=== PATIENT | female | born 1970 | race African-American/Black ===

== ENCOUNTER 2018-08-19 19:50 | Emergency (ER) | payer BC ==
[2018-08-19] MEDS ORDERED: PANTOPRAZOLE 40 MG INJ ONE (20:40)
--- NOTE | 2018-08-19 20:41 | RAD REPORT ---
EXAM DESCRIPTION: Ramesh Single View08/19/2018 8:32 pm CLINICAL HISTORY: Chest pain COMPARISON: none FINDINGS: The lungs appear clear of acute infiltrate. The heart is normal size IMPRESSION: No acute abnormalities displayed
[2018-08-19 20:49] LABS: Absolute Lymphocytes (CBC) 4.3 K/uL (0.7-4.9); Absolute Monocytes 0.5 K/uL (0.1-1.3); Absolute Neutrophil 4.8 K/uL (1.8-8.0); Basophils % 0.7 % (0-1.3); Eosinophils % 0.9 % (0-4.4); Hematocrit 38.3 % (36.0-45.0); MPV 8.7 fL (7.6-11.3); Monocytes % 5.6 % (3.3-12.3); RBC Red Blood Cell Count 4.52 M/uL (3.86-4.86)
[2018-08-19 20:50] LABS: Protime INR 1.01
[2018-08-19] MEDS ORDERED: MAGNE/ALUM HYDROXD 30 ML UCUP ONE (21:15)
[2018-08-19] MEDS ORDERED: LIDOCAINE VISCOUS 2% SOLN 15 ML UDC ONE (21:15)
[2018-08-19 21:16] LABS: ALT/SGPT 17 U/L (12-78); AST/SGOT 9 U/L (15-37); Albumin 3.9 g/dL (3.4-5.0); Alkaline Phosphatase 93 U/L (45-117); BUN Blood Urea Nitrogen 12 mg/dL (7-18); Bicarbonate 27 mmol/L (21-32); Bilirubin Direct < 0.1 mg/dL (0-0.2); Bilirubin Total 0.1 mg/dL (0.2-1.0); Glucose Level 108 mg/dL (74-106); Magnesium 2.3 mg/dL (1.8-2.4); NT PRO-BNP 10 pg/mL (<125); Potassium 3.4 mmol/L (3.5-5.1); Protein, Total 8.1 g/dL (6.4-8.2); Sodium Level 139 mmol/L (136-145); Troponin (Emerg Dept Use Only) < 0.02 ng/mL (0.0-0.045)
[2018-08-19 21:51] LABS: Urine Blood NEGATIVE (NEG); Urine Glucose NEGATIVE (NEG); Urine Protein NEGATIVE (NEG); Urine pH 5.5 (5.0-7.0)
--- NOTE | 2018-08-19 23:43 | EDPHYS ---
Physician Documentation [facility] Name: Ruth Melgar Age: 48 yrs Sex: Female : 1970 Arrival Date: 08/19/2018 Time: 19:50 Bed 26 Private MD: ED Physician Dale King HPI: 08/19 20:46 This 48 yrs old Black Female presents to ER via Ambulatory with complaints of Chest jr8 Pain. 20:46 Onset: acutely, today. The pain does not radiate. Associated signs and symptoms: jr8 Pertinent positives: abdominal pain. The chest pain is described as burning. Duration: The patient or guardian reports a single episode, that is still ongoing. Modifying factors: The symptoms are alleviated by nothing. the symptoms are aggravated by nothing. Severity of pain: At its worst the pain was moderate in the emergency department the pain is unchanged. The patient has not experienced similar symptoms in the past. The patient has not recently seen a physician. Patient stated that she has been having a hard time with epigastric pain and burning for the past couple of weeks. Saw PCP and is being worked up and referred. Now having burning chest pain tonight . 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 - Social history:: Smoking status: Patient/guardian denies using tobacco. - Ebola Screening: : No symptoms or risks identified at this time. ROS: 20:46 Eyes: Negative for injury, pain, redness, and discharge, ENT: Negative for injury, jr8 pain, and discharge, Neck: Negative for injury, pain, and swelling, Respiratory: Negative for shortness of breath, cough, wheezing, and pleuritic chest pain, Back: Negative for injury and pain, MS/Extremity: Negative for injury and deformity, Skin: Negative for injury, rash, and discoloration, Neuro: Negative for headache, weakness, numbness, tingling, and seizure. 20:46 Cardiovascular: Positive for chest pain, Negative for edema, orthopnea, palpitations, paroxysmal nocturnal dyspnea. 20:46 Abdomen/GI: Positive for abdominal pain, Negative for nausea, vomiting, and diarrhea, abdominal distension, anorexia, dysphagia, hematemesis, black/tarry stool, rectal pain, rectal bleeding, bowel incontinence, flatulence. Exam: 20:46 Eyes: Pupils equal round and reactive to light, extra-ocular motions intact. Lids and jr8 lashes normal. Conjunctiva and sclera are non-icteric and not injected. Cornea within normal limits. Periorbital areas with no swelling, redness, or edema. ENT: Nares patent. No nasal discharge, no septal abnormalities noted. Tympanic membranes are normal and external auditory canals are clear. Oropharynx with no redness, swelling, or masses, exudates, or evidence of obstruction, uvula midline. Mucous membranes moist. Neck: Trachea midline, no thyromegaly or masses palpated, and no cervical lymphadenopathy. Supple, full range of motion without nuchal rigidity, or vertebral point tenderness. No Meningismus. Cardiovascular: Regular rate and rhythm with a normal S1 and S2. No gallops, murmurs, or rubs. Normal PMI, no JVD. No pulse deficits. Respiratory: Lungs have equal breath sounds bilaterally, clear to auscultation and percussion. No rales, rhonchi or wheezes noted. No increased work of breathing, no retractions or nasal flaring. Back: No spinal tenderness. No costovertebral tenderness. Full range of motion. Skin: Warm, dry with normal turgor. Normal color with no rashes, no lesions, and no evidence of cellulitis. MS/ Extremity: Pulses equal, no cyanosis. Neurovascular intact. Full, normal range of motion. Neuro: Awake and alert, GCS 15, oriented to person, place, time, and situation. Cranial nerves II-XII grossly intact. Motor strength 5/5 in all extremities. Sensory grossly intact. Cerebellar exam normal. Normal gait. 20:46 Abdomen/GI: Inspection: abdomen appears normal, Bowel sounds: active, all quadrants, Palpation: soft, in all quadrants, mild abdominal tenderness, in the epigastric area, mass, is not appreciated, rebound tenderness, is not appreciated, voluntary guarding, is not appreciated, involuntary guarding, is not appreciated, no appreciated organomegaly, Indicators: McBurney's point is not tender, Armando's sign is negative, Rovsing's sign is negative, Liver: tenderness, is not appreciated. Vital Signs: 20:00 Pulse 65; Resp 16; Temp 99.2; Pulse Ox 100% on R/A; Weight 74.84 kg; Height 5 ft. 4 in. la1 (162.56 cm); 20:01 BP 150 / 87; la1 22:03 BP 148 / 77; Pulse 60; Resp 18; Pulse Ox 98% on R/A; mg2 23:54 BP 135 / 78; Pulse 65; Resp 18; Pulse Ox 100% on R/A; Pain 0/10; mg2 20:00 Body Mass Index 28.32 (74.84 kg, 162.56 cm) la1 MDM: 20:06 Patient medically screened. jr8 23:42 Data reviewed: vital signs, nurses notes, lab test result(s), EKG, radiologic studies, jr8 plain films, and as a result, I will discharge patient. Data interpreted: Pulse oximetry: on room air is 98 %. Interpretation: normal. Counseling: I had a detailed discussion with the patient and/or guardian regarding: the historical points, exam findings, and any diagnostic results supporting the discharge/admit diagnosis, lab results, radiology results, the need for outpatient follow up, a director hematology, to return to the emergency department if symptoms worsen or persist or if there are any questions or concerns that arise at home. Response to treatment: the patient's symptoms have resolved after treatment. 08/19 20:06 Order name: Basic Metabolic Panel; Complete Time: 21:36 08/19 20:06 Order name: CBC with Diff; Complete Time: 21:04 08/19 20:06 Order name: LFT's; Complete Time: 21:36 08/19 20:06 Order name: Magnesium; Complete Time: 21:36 08/19 20:06 Order name: NT PRO-BNP; Complete Time: 21:36 08/19 20:06 Order name: PT-INR; Complete Time: 21:07 08/19 20:06 Order name: Troponin (emerg Dept Use Only); Complete Time: 21:36 08/19 20:06 Order name: XRAY Chest (1 view); Complete Time: 20:50 08/19 20:06 Order name: EKG; Complete Time: 20:08 08/19 20:06 Order name: Cardiac monitoring; Complete Time: 20:25 08/19 21:43 Order name: Urine Dipstick--Ancillary (enter results); Complete Time: 21:53 mw2 08/19 21:43 Order name: Urine --Ancillary (enter results); Complete Time: 21:53 mw2 08/19 20:06 Order name: EKG - Nurse/Tech; Complete Time: 20:24 08/19 20:06 Order name: IV Saline Lock; Complete Time: 20:38 08/19 20:06 Order name: Labs collected and sent; Complete Time: 20:38 08/19 20:06 Order name: O2 Per Protocol; Complete Time: 20:25 08/19 20:06 Order name: O2 Sat Monitoring; Complete Time: 20:25 Administered Medications: 20:56 Drug: ProTONIX 40 mg Route: IVP; Site: right antecubital; mg2 22:32 Follow up: Response: No adverse reaction; Marked relief of symptoms mg2 21:16 Not Given (patient cant tolerate the medication): GI Cocktail without - mg2 (Maalox Suspension 30 ml, Lidocaine Liquid 2 % 15 ml) PO once Disposition: 08/20 02:43 Co-signature as Attending Physician, Dale King MD. pk Disposition: 08/19/18 23:42 Discharged to Home. Impression: Gastritis, unspecified, without bleeding, Esophagitis. - Condition is Stable. - Discharge Instructions: Gastritis, Adult. - Prescriptions for Protonix 40 mg Oral Tablet - take 1 tablet by ORAL route once daily; 30 tablet. - Medication Reconciliation Form, Thank You Letter, Antibiotic Education, Prescription Opioid Use form. - Follow up: Vik Cruz MD; When: 2 - 3 days; Reason: Recheck today's complaints, Continuance of care, Re-evaluation by your physician. - Problem is new. - Symptoms have improved. Signatures: Dispatcher [employer] EDMS Dale King MD MD pkl Андрей Haywood PA PA jr8 Donald Evans RN RN la1 Bakari Hidalgo RN RN mg2 Corrections: (The following items were deleted from the chart) 08/19 23:54 23:42 08/19/2018 23:42 Discharged to Home. Impression: Gastritis, unspecified, without mg2 bleeding; Esophagitis. Condition is Stable. Forms are Medication Reconciliation Form, Thank You Letter, Antibiotic Education, Prescription Opioid Use. Follow up: Vik Cruz; When: 2 - 3 days; Reason: Recheck today's complaints, Continuance of care, Re-evaluation by your physician. Problem is new. Symptoms have improved. jr8
--- NOTE | 2018-08-19 23:43 | ER ---
Nurse's Notes [facility] Name: Ruth Melgar Age: 48 yrs Sex: Female : 1970 Arrival Date: 08/19/2018 Time: 19:50 Bed 26 Private MD: Diagnosis: Gastritis, unspecified, without bleeding;Esophagitis Presentation: 08/19 19:57 Presenting complaint: Patient states: My chest is burning and burning for the last la1 hour, and for the last month I have to wake up in the middle of my night because my food is not digesting good. Transition of care: patient was not received from another setting of care. Onset of symptoms was August 19, 2018. Risk Assessment: Do you want to hurt yourself or someone else? Patient reports no desire to harm self or others. Initial Sepsis Screen: Does the patient meet any 2 criteria? No. Patient's initial sepsis screen is negative. Does the patient have a suspected source of infection? No. Patient's initial sepsis screen is negative. Care prior to arrival: None. 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 - Social history:: Smoking status: Patient/guardian denies using tobacco. - Ebola Screening: : No symptoms or risks identified at this time. Screenin:58 Abuse screen: Denies threats or abuse. Denies injuries from another. Nutritional mg2 screening: No deficits noted. Tuberculosis screening: No symptoms or risk factors identified. Fall Risk IV access (20 points). Assessment: 20:57 General: Appears in no apparent distress. comfortable, Behavior is calm, cooperative. mg2 Pain: Complains of pain in epigastric area Pain does not radiate. Pain currently is 6 out of 10 on a pain scale. Quality of pain is described as burning, aching, Pain began gradually, 1 hour ago. Is intermittent. Neuro: Level of Consciousness is awake, alert, obeys commands, Oriented to person, place, time, situation. Cardiovascular: Capillary refill < 3 seconds Patient's skin is warm and dry. Respiratory: Airway is patent Respiratory effort is even, unlabored, Respiratory pattern is regular, symmetrical. GI: Reports epigastric pain. : No signs and/or symptoms were reported regarding the genitourinary system. EENT: No signs and/or symptoms were reported regarding the EENT system. Derm: Skin is intact, is healthy with good turgor, Skin is pink, warm \T\ dry. normal. Musculoskeletal: Circulation, motion, and sensation intact. Capillary refill < 3 seconds. Vital Signs: 20:00 Pulse 65; Resp 16; Temp 99.2; Pulse Ox 100% on R/A; Weight 74.84 kg; Height 5 ft. 4 in. la1 (162.56 cm); 20:01 BP 150 / 87; la1 22:03 BP 148 / 77; Pulse 60; Resp 18; Pulse Ox 98% on R/A; mg2 23:54 BP 135 / 78; Pulse 65; Resp 18; Pulse Ox 100% on R/A; Pain 0/10; mg2 20:00 Body Mass Index 28.32 (74.84 kg, 162.56 cm) la1 ED Course: 19:50 Patient arrived in ED. am2 19:59 Triage completed. la1 19:59 Arm band placed on left wrist. la1 20:06 Андрей Haywood PA is PHCP. jr8 20:06 Dale King MD is Attending Physician. jr8 20:24 Jacinta Lopez, RN is Primary Nurse. tl3 20:31 X-ray completed. Portable x-ray completed in exam room. Patient tolerated procedure la2 well. 20:32 XRAY Chest (1 view) In Process Unspecified. EDMS 20:37 EKG done, by ED staff, reviewed by Андрей LARIOS. jp3 20:38 Placed in gown. Bed in low position. Call light in reach. Side rails up X 1. Warm jp3 blanket given. Pillow given. phototypesetting equipment monitor on. Pulse ox on. NIBP on. 20:58 No provider procedures requiring assistance completed. Inserted saline lock: 20 gauge mg2 in right antecubital area, using aseptic technique. Blood collected. Patient maintains SpO2 saturation greater than 95% on room air. 23:42 Vik Cruz MD is Referral Physician. jr8 23:52 IV discontinued, intact, bleeding controlled, No redness/swelling at site. Pressure mg2 dressing applied. Administered Medications: 20:56 Drug: ProTONIX 40 mg Route: IVP; Site: right antecubital; mg2 22:32 Follow up: Response: No adverse reaction; Marked relief of symptoms mg2 21:16 Not Given (patient cant tolerate the medication): GI Cocktail without - mg2 (Maalox Suspension 30 ml, Lidocaine Liquid 2 % 15 ml) PO once Outcome: 23:42 Discharge ordered by . jr8 23:52 Discharged to home ambulatory, with family. mg2 23:52 Condition: stable 23:52 Discharge instructions given to patient, family, Instructed on discharge instructions, follow up and referral plans. medication usage, Demonstrated understanding of instructions, follow-up care, medications, Prescriptions given X 1. 23:54 Patient left the ED. mg2 Signatures: Dispatcher [employer] EDMS Андрей Haywood PA PA jr8 Donald Evans RN RN la1 Aysha Meraz Leslie la2 Jacinta Lopez RN RN tl3 Bakari Hidalgo RN RN mg2 Oziel Zurita jp3 Corrections: (The following items were deleted from the chart) 20:39 20:37 EKG done, by ED staff, reviewed by Dale King MD jp3 jp3
--- NOTE | 2018-08-20 07:39 | EKG ---
Test Date: 2018-08-19 Test Time: 20:17:49 [place] Seamer: MONTRELL MEASUREMENT RESULTS: Intervals: Rate: 57 DC: 154 QRSD: 80 QT: 402 QTc: 391 [place]: P: 40 DC: 154 QRS: 21 T: 79 INTERPRETIVE STATEMENTS: Sinus bradycardia Nonspecific T wave abnormality Abnormal ECG No previous ECG available for comparison Electronically Signed On 08-20-18 07:37:34 CHANNELING MACHINE OPERATOR by Pineda Cassidy
== END 2018-08-19 23:54 | disposition home or self-care (01) ==
LOC: ER 19:50
DX: K29.70 Gastritis, unspecified, without bleeding (principal); K20.9 Esophagitis, unspecified; I10 Essential (primary) hypertension
CPT/HCPCS: 36415; 71045; 80048; 80076; 81003; 81025; 83735; 83880; 84484; 85025; 85610; 93005; 96374; 99285; C9113

== ENCOUNTER 2021-10-11 22:44 | Observation (INO) | payer BC ==
--- OUTSIDE RECORDS SUMMARY | 2021-10-11 22:47 | XMS REPORT | Continuity of Care Document ---
:1970 Author Organization [facility] t Address [facility] [place] [address] [place] [id number] Care Team Providers Name Role Phone WAQAS Attending Clinician Unavailable WAQAS Admitting Clinician Unavailable Payers Payer Name Policy Type Policy Number Effective Date Expiration Date S ource Problems This patient has no known problems. Allergies, Adverse Reactions, Alerts This patient has no known allergies or adverse reactions. Medications This patient has no known medications. Procedures This patient has no known procedures. Encounters Start End Encounter Admission Attending Care Care Encounter Source Date/Time Date/Time Type Type Clinicians Facility Department ID 2021-05-12 2021-05-12 Outpatient [facility] [id number] 12:51:00 12:51:00 _[facility] [id number] [facility] h Program Results This patient has no known results.
[2021-10-12] MEDS ORDERED: MORPHINE 4 MG/ML SYR ONE (00:24)
[2021-10-12] MEDS ORDERED: ONDANSETRON 4 MG/2 ML VIAL ONE ×2 (00:24→14:00)
[2021-10-12] MEDS ORDERED: FAMOTIDINE 20 MG/2 ML VIAL IV ONE (00:25)
[2021-10-12 00:29] LABS: Absolute Lymphocytes (CBC) 3.1 K/uL (0.7-4.9); MPV 8.4 fL (7.6-11.3); RBC Red Blood Cell Count 4.18 M/uL (3.86-4.86)
[2021-10-12] MEDS ORDERED: DICYCLOMINE HCL 20 MG/2 ML AMP IM ONE (00:45)
[2021-10-12] MEDS ORDERED: KETOROLAC 30 MG/ML INJ ONE ×2 (00:45→15:23)
[2021-10-12 00:47] LABS: Albumin 3.6 g/dL (3.4-5.0); Bilirubin Total 0.2 mg/dL (0.2-1.0); Protein, Total 8.2 g/dL (6.4-8.2)
[2021-10-12] MEDS ORDERED: DICYCLOMINE HCL 10 MG CAP ONE (00:56)
--- NOTE | 2021-10-12 01:08 | ER ---
Nurse's Notes [facility] Name: Ruth Melgar Age: 51 yrs Sex: Female : 1970 Arrival Date: 10/11/2021 Time: 22:46 Bed 5 Private MD: Diagnosis: Acute cholecystitis Presentation: 10/11 23:04 Chief complaint: Patient states: C/O abdominal pain, and nausea, started on 10/08/21. ll3 Coronavirus screen: Client presents with at least one sign or symptom that may indicate coronavirus-19. Ebola Screen: No symptoms or risks identified at this time. Initial Sepsis Screen: Does the patient meet any 2 criteria? No. Patient's initial sepsis screen is negative. Does the patient have a suspected source of infection? No. Patient's initial sepsis screen is negative. Risk Assessment: Do you want to hurt yourself or someone else? Patient reports no desire to harm self or others. Onset of symptoms was October 08, 2021. 23:04 Method Of Arrival: Ambulatory ll3 23:04 Acuity: JESSICA 3 ll3 Triage Assessment: 23:06 General: Appears uncomfortable, Behavior is calm, cooperative. Pain: Complains of pain ll3 in anterior aspect of right lateral abdomen and right upper quadrant Pain currently is 8 out of 10 on a pain scale. Pain began 2-3 days ago. GI: Abdomen is flat, non-distended, Abd is soft X 4 quads Abdomen is tender to palpation in right upper quadrant Reports nausea. Derm: Skin is pink, warm \\T\\ dry. 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 - Social history:: Smoking status: Patient denies any tobacco usage or history of. Screenin/12 00:29 Abuse screen: Denies threats or abuse. Nutritional screening: No deficits noted. al4 Tuberculosis screening: No symptoms or risk factors identified. Fall Risk No fall in past 12 months (0 pts). IV access (20 points). Ambulatory Aid- None/Bed Rest/Nurse Assist (0 pts). Gait- Normal/Bed Rest/Wheelchair (0 pts) Mental Status- Oriented to own ability (0 pts). Total Gomez Fall Scale indicates No Risk (0-24 pts). Assessment: 00:27 General: Appears in no apparent distress. uncomfortable, Behavior is calm, cooperative. al4 Pain: Complains of pain in abdomen Pain radiates to back Pain currently is 7 out of 10 on a pain scale. Neuro: Level of Consciousness is awake, alert, obeys commands, Oriented to person, place, time, situation. Cardiovascular: Capillary refill < 3 seconds Patient's skin is warm and dry. Respiratory: Airway is patent Respiratory effort is unlabored, Respiratory pattern is symmetrical. GI: Abdomen is non-distended, Bowel sounds present X 4 quads. Abdomen is tender to palpation in right upper quadrant and right lower quadrant. Musculoskeletal: Circulation, motion, and sensation intact. 01:53 Reassessment: Patient and/or family updated on plan of care and expected duration. Pain al4 level reassessed. Patient is alert, oriented x 3, equal unlabored respirations, skin warm/dry/pink. 04:00 Reassessment: Patient appears in no apparent distress at this time. patient appears to al4 be sleeping. chest rise and fall noted. . Vital Signs: 10/11 23:04 BP 125 / 70; Pulse 73; Resp 17; Temp 98.9(TE); Pulse Ox 99% on R/A; Weight 68.04 kg ll3 (R); Height 5 ft. 3 in. (160.02 cm) (R); Pain 8/10; 23:39 BP 135 / 85; Pulse 64; Resp 18 S; Pulse Ox 99% on R/A; al4 10/12 00:22 BP 122 / 73; Pulse 60; Resp 18 S; Pulse Ox 99% on R/A; al4 02:30 BP 107 / 58; Pulse 51; Resp 18 S; Pulse Ox 96% on R/A; al4 03:30 BP 113 / 64; Pulse 51; Resp 17; Pulse Ox 97% on R/A; al4 04:30 BP 121 / 67; Pulse 50; Resp 18 S; Pulse Ox 98% on R/A; al4 10/11 23:04 Body Mass Index 26.57 (68.04 kg, 160.02 cm) ll3 ED Course: 10/11 22:46 Patient arrived in ED. ag3 23:06 Triage completed. ll3 23:06 Arm band placed on. ll3 23:10 Jose Jennings PA is PHCP. cp 23:10 Darvin Manning MD is Attending Physician. cp 23:45 Bassam Zhu is Primary Nurse. al4 0412 00:05 Initial lab(s) drawn, by me, sent to lab. Inserted saline lock: 20 gauge in right jb4 antecubital area, using aseptic technique. Blood collected. 00:12 Abdomen Limited US: RUQ/epigastric In Process Unspecified. EDMS 00:29 Patient has correct armband on for positive identification. Placed in gown. Call light al4 in reach. 01:07 Jesus Jiang MD is Hospitalizing Provider. cp 01:51 COVID-19/FLU A+B (Document "Date of Onset" if Symptomatic) Sent. al4 05:00 No provider procedures requiring assistance completed. Patient admitted, IV remains in al4 place. Administered Medications: 00:26 Drug: Zofran (Ondansetron) 4 mg Route: IVP; Site: right antecubital; al4 00:27 Drug: Pepcid (famotidine) 20 mg Route: IVP; Site: right antecubital; al4 00:27 Not Given (Other Intervention Used): morphine 4 mg IVP once; RASS on ADMIN: Combtv4, al4 Very Agttd3, Agttd2, Rstlss1, AlertClm0, Drwsy-1, Lt Sdtn-2, Mod Sdtn-3, Dp Sdtn-4, UnArsble-5 00:55 Drug: Bentyl (dicyclomine) 20 mg Route: PO; al4 02:41 Follow up: Response: No adverse reaction al4 00:55 Drug: Ketorolac 15 mg Route: IVP; Site: right antecubital; al4 02:40 Follow up: Response: No adverse reaction al4 01:50 Drug: Rocephin - (cefTRIAXone) 1 grams Route: IVPB; Infused Over: 30 mins; Site: right al4 antecubital; 02:40 Follow up: Response: No adverse reaction; IV Status: Completed infusion; IV Intake: [id number] 01:51 Drug: morphine 2 mg Route: IVP; Site: right antecubital; al4 02:40 Follow up: Response: No adverse reaction; RASS: Alert and Calm (0) al4 01:51 Drug: NS 0.9% 1000 ml Route: IV; Rate: 125 ml/hr; Site: right antecubital; al4 02:40 Drug: Potassium Chloride 20 mEq Route: IV; Rate: calculated rate; Site: right al4 antecubital; 04:42 Follow up: Response: No adverse reaction; IV Status: Completed infusion al4 Intake: 02:40 IV: 50ml; Total: 50ml. al4 Outcome: 01:07 Decision to Hospitalize by Provider. cp 05:00 Admitted to ER Hold. [facility]. al4 05:00 Condition: stable 05:00 Instructed on the need for admit, Demonstrated understanding of instructions. 15:41 Patient left the ED. ss Signatures: Dispatcher [employer] EDMS Shelley Gee RN RN ss Jose Jennings PA PA cp Bryson, James, RN RN jb4 Malou Hernandez 3 Chasidy Desouza RN RN ll3 Bassam Zhu al4 Corrections: (The following items were deleted from the chart) 10/11 23:08 23:06 GI: Abdomen is flat, non-distended, Abd is soft X 4 quads Abdomen is tender to ll3 palpation in right upper quadrant ll3 23:08 23:06 Derm: Skin is pink, warm \\T\\ dry. ll3 ll3 10/12 05:01 00:27 GI: Abdomen is non-distended, Abdomen is tender to palpation in right upper al4 quadrant and right lower quadrant al4
--- NOTE | 2021-10-12 01:08 | EDPHYS ---
Physician Documentation [facility] Name: Ruth Melgar Age: 51 yrs Sex: Female : 1970 Arrival Date: 10/11/2021 Time: 22:46 Bed 5 Private MD: ED Physician Darvin Manning HPI: 10/11 23:20 This 51 yrs old Black Female presents to ER via Ambulatory with complaints of Abdominal cp Pain. 23:20 The patient presents with abdominal pain in the right upper quadrant. Onset: The cp symptoms/episode began/occurred 3 day(s) ago. The symptoms radiate to back. Associated signs and symptoms: Pertinent positives: anorexia, Pertinent negatives: chest pain, constipation, diarrhea, fever, shortness of breath, vomiting. The symptoms are described as waxing/waning. Modifying factors: the symptoms are aggravated by food, pressure. Severity of pain: in the emergency department the pain is unchanged despite home interventions. OFFICE REP: 10/12 05:01 LMP N/A - Hysterectomy al4 Historical: - Allergies: 10/11 23:06 No Known Allergies; ll3 - Immunization history:: Client reports receiving the 2nd dose of the Covid vaccine. - Social history:: Smoking status: Patient denies any tobacco usage or history of. ROS: 23:25 Constitutional: Negative for body aches, chills, fever, poor PO intake. cp 23:25 Eyes: Negative for injury, pain, redness, and discharge. cp 23:25 ENT: Negative for drainage from ear(s), ear pain, sore throat, difficulty swallowing, difficulty handling secretions. 23:25 Cardiovascular: Negative for chest pain, edema, palpitations. 23:25 Respiratory: Negative for cough, shortness of breath, wheezing. 23:25 Abdomen/GI: Positive for abdominal pain, anorexia, Negative for vomiting, diarrhea, constipation. 23:25 Back: Positive for radiated pain. 23:25 : Negative for urinary symptoms. 23:25 Neuro: Negative for altered mental status, headache, weakness. 23:25 All other systems are negative. Exam: 23:30 Constitutional: The patient appears in no acute distress, alert, awake, cp non-diaphoretic, non-toxic, well developed, well nourished, uncomfortable. 23:30 Head/Face: Normocephalic, atraumatic. cp 23:30 Eyes: Periorbital structures: appear normal, Conjunctiva: normal, no exudate, no injection, Sclera: no appreciated abnormality, Lids and lashes: appear normal, bilaterally. 23:30 ENT: External ear(s): are unremarkable, Nose: is normal, Mouth: Lips: moist, Oral mucosa: moist, Posterior pharynx: Airway: no evidence of obstruction, patent. 23:30 Chest/axilla: Inspection: normal. 23:30 Cardiovascular: Rate: normal, Rhythm: regular. 23:30 Respiratory: the patient does not display signs of respiratory distress, Respirations: normal, no use of accessory muscles, no retractions, labored breathing, is not present, Breath sounds: are clear throughout, no decreased breath sounds, no stridor, no wheezing. 23:30 Abdomen/GI: Inspection: abdomen appears normal, Bowel sounds: active, all quadrants, Palpation: soft, in all quadrants, moderate abdominal tenderness, in the right upper quadrant, rebound tenderness, is not appreciated, voluntary guarding, is elicited in the right upper quadrant. 23:30 Back: CVA tenderness, is absent. 23:30 Skin: cellulitis, is not appreciated, no rash present. 23:30 Neuro: Orientation: to person, place \\T\\ time. Mentation: is normal, Motor: moves all fours, strength is normal, Sensation: is normal. Vital Signs: 23:04 BP 125 / 70; Pulse 73; Resp 17; Temp 98.9(TE); Pulse Ox 99% on R/A; Weight 68.04 kg ll3 (R); Height 5 ft. 3 in. (160.02 cm) (R); Pain 8/10; 23:39 BP 135 / 85; Pulse 64; Resp 18 S; Pulse Ox 99% on R/A; al4 04/12 00:22 BP 122 / 73; Pulse 60; Resp 18 S; Pulse Ox 99% on R/A; al4 02:30 BP 107 / 58; Pulse 51; Resp 18 S; Pulse Ox 96% on R/A; al4 03:30 BP 113 / 64; Pulse 51; Resp 17; Pulse Ox 97% on R/A; al4 04:30 BP 121 / 67; Pulse 50; Resp 18 S; Pulse Ox 98% on R/A; al4 10/11 23:04 Body Mass Index 26.57 (68.04 kg, 160.02 cm) ll3 MDM: 10/11 23:25 Patient medically screened. 10/12 00:00 Differential diagnosis: cholecystitis, Cholelithiasis, non-specific abd pain, cp pancreatitis, Peptic Ulcer Disease, Perf. Duodenal Ulcer, Perf. Gastric Ulcer, Pyelonephritis, Ureterolithiasis, urinary tract infection. 01:00 Data reviewed: vital signs, nurses notes, lab test result(s), radiologic studies, cp ultrasound. 01:00 Physician consultation: Bradley Ochoa MD was called at 00:50, was contacted at 00:50, cp regarding patient's condition, would like admission per Dr. Jesus Jiang MD. 10/11 23:11 Order name: CBC with Diff; Complete Time: 00:51 10/12 00:51 Interpretation: Normal except: HGB 11.7; HCT 35.0. 10/11 23:11 Order name: CMP; Complete Time: 00:51 10/12 00:51 Interpretation: Normal except: K 3.0; GLUC 116; GFR 73; AST 11; GLOB 4.6; A/G 0.8. 10/11 23:11 Order name: Lipase; Complete Time: 00:51 10/11 23:11 Order name: Urine Microscopic Only 10/12 01:29 Order name: COVID-19/FLU A+B (Document "Date of Onset" if Symptomatic) 10/12 02:45 Order name: Urine Dipstick-Ancillary [facility] 10/11 23:11 Order name: Abdomen Limited US: RUQ/epigastric 10/12 06:04 Order name: Glucose, Ancillary Testing [facility] 10/12 09:22 Order name: Potassium EDMT 10/12 12:48 Order name: Glucose, Ancillary Testing [facility] 10/11 23:11 Order name: IV Saline Lock; Complete Time: 00:27 10/11 23:11 Order name: Labs collected and sent; Complete Time: 00:27 10/11 23:11 Order name: Urine Dipstick-Ancillary (obtain specimen); Complete Time: 02:44 10/11 23:11 Order name: Urine Test (obtain specimen); Complete Time: 02:44 10/11 23:11 Order name: NPO; Complete Time: 00:27 cp Administered Medications: 00:26 Drug: Zofran (Ondansetron) 4 mg Route: IVP; Site: right antecubital; al4 00:27 Drug: Pepcid (famotidine) 20 mg Route: IVP; Site: right antecubital; al4 00:27 Not Given (Other Intervention Used): morphine 4 mg IVP once; RASS on ADMIN: Combtv4, al4 Very Agttd3, Agttd2, Rstlss1, AlertClm0, Drwsy-1, Lt Sdtn-2, Mod Sdtn-3, Dp Sdtn-4, UnArsble-5 00:55 Drug: Bentyl (dicyclomine) 20 mg Route: PO; al4 02:41 Follow up: Response: No adverse reaction al4 00:55 Drug: Ketorolac 15 mg Route: IVP; Site: right antecubital; al4 02:40 Follow up: Response: No adverse reaction al4 01:50 Drug: Rocephin - (cefTRIAXone) 1 grams Route: IVPB; Infused Over: 30 mins; Site: right al4 antecubital; 02:40 Follow up: Response: No adverse reaction; IV Status: Completed infusion; IV Intake: [id number] 01:51 Drug: morphine 2 mg Route: IVP; Site: right antecubital; al4 02:40 Follow up: Response: No adverse reaction; RASS: Alert and Calm (0) al4 01:51 Drug: NS 0.9% 1000 ml Route: IV; Rate: 125 ml/hr; Site: right antecubital; al4 02:40 Drug: Potassium Chloride 20 mEq Route: IV; Rate: calculated rate; Site: right al4 antecubital; 04:42 Follow up: Response: No adverse reaction; IV Status: Completed infusion al4 Disposition: 19:17 Co-signature as Attending Physician, Darvin Manning MD. [email or web address] Disposition Summary: 10/12/21 01:07 Hospitalization Ordered Hospitalization Status: Inpatient Admission cp Provider: Jesus Jiang cp Condition: Stable cp Problem: new cp Symptoms: have improved cp Bed/Room Type: Standard cp Location: [facility] ER HOLD(10/12/21 12:55) Room Assignment: ERHOLD-(10/12/21 12:55) ss Diagnosis - Acute cholecystitis cp Forms: - Medication Reconciliation Form cp - SBAR form cp Signatures: Dispatcher [employer] EDLizette Epps Jazmine Washington RN RN Shelley Gee RN RN ss Donald Evans, [facility] AND HEARING CLINIC DIRECTOR-C [facility] AND [facility]ARING [facility]IN[facility] DIRECTOR-Cla1 Jose Jennings PA PA cp Holmes, Maurice, MD MD 7 Chasidy Desouza RN RN 3 Bassam Zhu Corrections: (The following items were deleted from the chart) 03: 01:07 Telemetry/MedSurg (Inpatient) cp mw 03: 01:07 cp mw 12: 03:09 [facility] ER HOLD mw bd 12: 03:09 ERHOLD- mw bd 12:55 12:23 Telemetry/MedSurg (Inpatient) bd ss 12:55 12:23 206 bd ss
[2021-10-12] MEDS ORDERED: CEFTRIAXONE 1000 MG/VIAL ONE ×2 (01:42→08:28)
[2021-10-12] MEDS ORDERED: MORPHINE 2 MG/ML SYR ONE (01:42)
[2021-10-12] MEDS ORDERED: NA CHLORIDE 0.9% 50 ML ONE ×2 (01:43→08:29)
[2021-10-12] MEDS ORDERED: NA CHLORIDE 0.9% 1,000 ML ONE ×2 (01:43→13:17)
--- NOTE | 2021-10-12 02:04 | P.HP ---
Certification for Inpatient Patient admitted to: Observation With expected LOS: <2 Midnights Patient will require the following post-hospital care: None Practitioner: I am a practitioner with admitting privileges, knowledge of patient current condition, hospital course, and medical plan of care. Services: Services provided to patient in accordance with Admission requirements found in Title 42 Section 412.3 of the Code of Federal Regulations Patient History Date of Service: 10/12/21 Reason for admission: Acute cholecystitis History of Present Illness: 51-year-old -Turkish female with history of diabetes mellitus type [id number]-ubiavnusn, hypertension, hyperlipidemia and GERD presents emergency department for 3 days of right upper quadrant abdominal pain. Patient reports her pain is worse after eating history of previous appendectomy. Patient is evaluated in the emergency department her labs were significant for mild hypokalemia potassium 3.0 she had an ultrasound of her right upper quadrant which demonstrated cholelithiasis with gallbladder wall thickening. Patient with moderate tenderness to palpation persistent pain over the course of the last 3 days. ED provider discussed case with general surgery who wishes for patient to be admitted to the hospitalist service for anticipated cholecystectomy. - Past Medical/Surgical History -: Diabetes mellitus type 3mzj-bpwlfhy-xregdlypt -: Hypertension -: Hyperlipidemia -: GERD -: Appendectomy -: Cholecystectomy Psychosocial/ Personal History: Lives at home with her , children - Family History Family History: Reviewed- Non-Contributory - Social History Smoking Status: Never smoker Alcohol use: No CD- Drugs: No Caffeine use: No Place of Residence: Home Review of Systems 10-point ROS is otherwise unremarkable Gastrointestinal: Nausea, Abdominal Pain Physical Examination - Physical Exam General: Alert, In no apparent distress, Oriented x3 HEENT: Atraumatic, PERRLA, Mucous membr. moist/pink, EOMI, Sclerae nonicteric Neck: Supple, 2+ carotid pulse no bruit, No LAD, Without JVD or thyroid abnormality Respiratory: Clear to auscultation bilaterally, Normal air movement Cardiovascular: Regular rate/rhythm, Normal S1 S2 Capillary refill: <2 Seconds Gastrointestinal: Normal bowel sounds, Tenderness (Moderate right upper quadrant tenderness) Musculoskeletal: No tenderness Integumentary: No rashes Neurological: Normal speech, Normal strength at 5/5 x4 extr, Normal tone, Normal affect - Studies Laboratory Data (last 24 hrs) 10/12/21 00:08: Sodium 136, Potassium 3.0 L, BUN 15, Creatinine 0.97, Glucose 116 H, Total Bilirubin 0.2, AST 11 L, ALT 23, Alkaline Phosphatase 82, Lipase 82 10/12/21 00:08: WBC 10.8, Hgb 11.7 L, Hct 35.0 L, Plt Count 302 Assessment and Plan - Plan Assessment: Right upper quadrant abdominal pain, acute cholecystitis Diabetes mellitus type [id number]-nrzximg-svevdbraw Hypertension Hyperlipidemia GERD Hypokalemia Plan: Right upper quadrant abdominal pain, acute cholecystitis: N.p.o., IVF, IV antibiotics, as needed pain medications. General surgery consulted. Diabetes mellitus type 4tph-xhzosse-hwihylwsf: Every 6 hours Accu-Chek, Riss Hypertension: Continue home medications when appropriate Hyperlipidemia: Continue home medications when appropriate GERD: IV Protonix daily Hypokalemia: Replaced in ER, protocol in place. DVT PPX: SCD Code status: Full Discharge Plan: Home Plan to discharge in: 24 Hours - Advance Directives Does patient have a Living Will: No Does patient have a Durable POA for Healthcare: No - Code Status/Comfort Care Code Status Assessed: Yes (Full code) Critical Care: No Time Spent Managing Pts Care (In Minutes): 55
[2021-10-12 02:33] LABS: SARS-COV-2 RT PCR NEGATIVE (NEGATIVE)
[2021-10-12] MEDS ORDERED: KCL 20 MEQ/100 mL IVPB 100 ML IV ONE ×2 (02:41→08:29)
[2021-10-12 02:45] LABS: Urine Blood Negative (Negative); Urine Glucose Negative (Negative); Urine Protein Negative (Negative)
[2021-10-12] MEDS ORDERED: GLUCAGON 1 MG/VIAL IM PRN (05:26)
[2021-10-12] MEDS ORDERED: MORPHINE 2 MG/ML SYR IV PRN ×2 (05:26→14:03)
[2021-10-12] MEDS ORDERED: D50W 25 GM/50 ML SYRINGE IV PRN (05:26)
[2021-10-12] MEDS: INSULIN -REGULAR HUMAN 50 UNIT/0.5 ML ML SQ SCH ×3 (05:56→17:38)
[2021-10-12] MEDS ORDERED: MORPHINE 4 MG/ML SYR IV PRN ×2 (06:00→16:48)
[2021-10-12] MEDS ORDERED: ONDANSETRON 4 MG/2 ML VIAL IV PRN (06:30)
[2021-10-12 07:58] VITALS: BMI 26.5
[2021-10-12] MEDS: CEFTRIAXONE 1,000 MG in NA CHLORIDE 0.9% 50 ML IVPB SCH (08:35)
[2021-10-12] MEDS ORDERED: KCL 20 MEQ/100 mL IVPB 20 MEQ/100 ML BAG IV SCH (09:00)
[2021-10-12] MEDS ORDERED: NA CHLORIDE 0.9% 250 ML ONE (10:18)
[2021-10-12] MEDS ORDERED: CELECOXIB 100 MG CAPSULE ONE (13:17)
[2021-10-12] MEDS ORDERED: ACETAMINOPHEN 500 MG TAB ONE (13:17)
[2021-10-12] MEDS ORDERED: propofoL 200 MG/20 ML VIAL IV ONE (13:58)
[2021-10-12] MEDS ORDERED: FENTANYL CITR 100 MCG/2 ML ONE (13:59)
[2021-10-12] MEDS ORDERED: LIDOCAINE 1% MPF 2 ML AMPULE ONE (14:00)
[2021-10-12] MEDS ORDERED: MIDAZOLAM HCL 2 MG/2 ML INJ ONE (14:00)
[2021-10-12] MEDS ORDERED: METRONIDAZOLE 500mg IVPB 500 MG/100 ML BAG IV SCH (14:00)
[2021-10-12] MEDS ORDERED: ROCURONIUM 50 MG/5 ML VIAL IV ONE (14:00)
--- NOTE | 2021-10-12 14:41 | P.HP ---
Date of Service: 10/12/21 PC: This 51-year-old female presented to the emergency room with severe right upper quadrant abdominal pain for diagnosis and treatment. HPC: Patient is been experiencing upper abdominal pain particularly after she eats for the last few months. Usually it lasts a short period of time. However this time it would not go away, continue to radiate straight through to her back, and she came to the emergency room for evaluation. PSHx: Appendectomy age 14 PMHx: Ney-xppwuqj-tovnnepan diabetic, otherwise healthy female Social Hx: No known allergies, takes Metformin Sys R: No cough, wheeze, shortness of breath. No chest pain or palpitations. States she has had this abdominal pain for probably the last few years. However has been getting worse. Denies any urinary tract symptoms. O/E: Awake alert vital signs are stable HEENT: Nonicteric Chest: Air movement equal bilaterally Abd: Abdomen is soft, mild tenderness in the right upper quadrant Guthrie: Intact Data: As documented gallstones on ultrasound, with acute component, elevated white cell count liver enzymes are normal Impression: Acute on chronic cholecystitis with cholelithiasis Plan: I will taken the operating room for laparoscopic possible open cholecystectomy with a cholangiogram. The risks of this procedure have been discussed. The possibility of bleeding, infection, injury to bile ducts blood vessels and intestines has been described. The possible need for an open and/or further surgeries and procedures was discussed. She understands and wants us to proceed.
[2021-10-12] MEDS ORDERED: Phenylephrine HCl 10 MG/ML 1 ML VIAL ONE (15:03)
[2021-10-12] MEDS ORDERED: dexAMETHasone 10 MG/ML VIAL ONE (15:23)
[2021-10-12] MEDS ORDERED: GLYCOPYRROLATE 0.2 MG/ML SYR ONE (15:27)
[2021-10-12] MEDS ORDERED: NEOSTIGMINE 1 MG/ML -5 ML ONE (15:28)
--- NOTE | 2021-10-12 15:48 | RAD REPORT ---
EXAM DESCRIPTION: US - Abdomen Exam Limited - 10/12/2021 1:06 am CLINICAL HISTORY: 51 years, Female, ABD PAIN COMPARISON: None. TECHNIQUE: Utilizing a curved array transducer, real-time ultrasound evaluation of the abdominal vis cera was performed. Color Doppler imaging was used to assess vascular flow. FINDINGS: The liver demonstrate a to be within normal limits. No significant major intrahepatic bili tere duct dilatation within the provided images. The gallbladder demonstrate the presence of several echogenic structure with posterior shadowing vernon esponding to cholelithiasis. Largest one measured 2.5 cm. There is compatible thickening measuring 3. 4 mm there is no pericholecystic fluid. The common bile duct measures 4.7 mm. No intra or extrahe patic biliary duct dilatation was identified. No significant free fluid within the upper abdomen. IMPRESSION: LIMITED RIGHT UPPER QUADRANT ULTRASOUND DEMONSTRATE CHOLELITHIASIS WITH GALLBLADDER WALL THICKENING. IF CONCERN FOLLOW-UP WITH [facility]IDA SCAN COULD BE OF ASSISTANCE. Electronically signed by: Sherif Kyle MD 10/12/2021 12:33 AM CDT Due to temporary technical issues with the PACS/Fluency reporting system, reports are being signed by the in house radiologists without review as a courtesy to insure prompt reporting. The interpreting radiologist is fully responsible for the content of the report.
--- NOTE | 2021-10-12 16:17 | P.OP ---
Preoperative diagnosis: Cholecystitis with cholelithiasis Postoperative diagnosis: The same Primary procedure: Laparoscopic cholecystectomy Secondary procedure: Cholangiogram Anesthesia: General Estimated blood loss: Less than 20 cc Specimen: 1 gallbladder and contents Operative Technique: Patient brought the operating room placed supine on the table. After the induction of adequate general endotracheal anesthesia, the area of the abdomen was prepped with a DuraPrep solution, he was draped she was draped in the usual aseptic manner. A subumbilical incision was made. This brought down through the skin and subcutaneous tissue. The Visiport was now used to enter the peritoneal cavity and created pneumoperitoneum to approximately 12 mmHg. Under direct vision a 5 mm trocar was placed in the upper midline, and 2 other 5 mm trochars on the right lateral side of the abdominal wall. The patient was now placed in reverse Trendelenburg. The table was rolled to the left. We could visualize the right upper quadrant. We could see a chronic lead inflamed gallbladder with an acute component. A grasper was placed on the fundus of the gallbladder. There were marked adhesions between the body of the gallbladder and the omentum. These were gently taken down using blunt and sharp dissection. We follow the sweep around Nicolas's pouch. The cystic duct was identified. There was noted be a stone wedged into Nicolas's pouch. Another one could be gently palpated in the cystic duct. A clip was placed between the gallbladder and the cystic duct. An opening was made into the cystic duct through which we obtained a cholangiogram. The cholangiogram showed flow of contrast into the duodenum. We were unable to fill the upper radicles. Once again we dissected around the cystic duct to ensure that we are in the correct structure. The cholangiocatheter was removed and a clip was placed beneath it to close the cystic duct. At this point the cystic artery was identified clipped and divided in the usual manner. We now dissected the gallbladder free from the liver bed. We did find one prominent vessel in that area. A clip was placed upon it. We did not see any bile leaking from the liver bed. The area was irrigated with a copious amount of a saline solution as the gallbladder had been detached. It was placed into an Endo Catch. This was then brought out through the umbilical trocar site. At this point the abdomen was inspected to ensure adequate hemostasis. The patient was returned to the neutral position on the OR table. The irrigating fluid was aspirated from the peritoneal cavity. Attention was turned back towards the umbilicus. We were now able to approximate this area using an acute Endo Close and an absorbable suture. This having been done the pneumoperitoneum was now collapsed, the trochars removed, and johan applied to the skin. The incisions were further injected with more 0.25% Marcaine. At the end of the procedure she was in a stable condition was sent to the recovery room. Needle sponge and instrument count were correct. No drains were placed. Complications: None Transferred to: Recovery Room Condition: Good
[2021-10-12] MEDS ORDERED: HYDROCODONE/APAP 7.5/325 MG TAB PO PRN (16:27)
[2021-10-12] MEDS: HYDROMORPHONE HCL 1 MG/ML INJ ONE ×2 (16:58→17:05)
--- NOTE | 2021-10-12 17:24 | RAD REPORT ---
EXAM DESCRIPTION: RAD - Cholangiogram Oper-Xray Or - 10/12/2021 5:04 pm FINDINGS: There were 11 portable C-arm views submitted from a fluoroscopic assisted intraoperative c holangiogram. No suspicious or unexpected finding. Correlation is needed with findings during real-ti me assessment. Fluoro time was 0.5 minutes. Cumulative dose was 15.5 mGy.
[2021-10-12] MEDS ORDERED: MORPHINE 4 MG/ML SYR IV SCH (18:00)
[2021-10-13 05:04] LABS: Absolute Lymphocytes (CBC) 1.3 K/uL (0.7-4.9); Hematocrit 33.6 % (36.0-45.0); Lymphocytes % 10.8 % (15.3-44.8); MPV 8.3 fL (7.6-11.3); RBC Red Blood Cell Count 4.01 M/uL (3.86-4.86)
[2021-10-13 05:21] LABS: ALT/SGPT 47 U/L (12-78); AST/SGOT 34 U/L (15-37); Albumin 2.9 g/dL (3.4-5.0); Alkaline Phosphatase 74 U/L (45-117); BUN Blood Urea Nitrogen 13 mg/dL (7-18); Bicarbonate 28 mmol/L (21-32); Bilirubin Total 0.3 mg/dL (0.2-1.0); Glucose Level 118 mg/dL (74-106); Potassium 3.6 mmol/L (3.5-5.1); Protein, Total 7.3 g/dL (6.4-8.2); Sodium Level 137 mmol/L (136-145)
[2021-10-13] MEDS: INSULIN -REGULAR HUMAN 50 UNIT/0.5 ML ML SQ SCH ×2 (07:30→11:30)
[2021-10-13] MEDS: CEFTRIAXONE 1,000 MG in NA CHLORIDE 0.9% 50 ML IVPB SCH (09:21)
[2021-10-13 12:04] VITALS: O2SAT 98
[2021-10-13 13:23] VITALS: BP 95/48; TEMP 97.4
--- NOTE | 2021-10-13 13:49 | P.PN ---
Date of Service: 10/13/21 S: Patient feels better today, pain is controlled on medication. However he asking for regular food. She is anxious to go home. O: Vital signs are stable A: Surgically stable, incisions are clean P: Discharge home, see me next week in my office. Instructed on incentive spirometry, ambulation, diet, keeping well-hydrated. Any questions or problems, she will return to the emergency room, or contact my office.
--- NOTE | 2021-10-13 20:29 | P.DS ---
Admission Date: 10/12/21 Discharge Date: 10/13/21 Disposition: D/C Home Medical Screening Onl Discharge Condition: GOOD Reason for Admission: Acute cholecystitis Consultations: General Surgery - Dr. Ochoa Procedures: Problem List: acute cholecystitis with cholelithiasis Diabetes mellitus type [id number] Hypertension Hyperlipidemia GERD Hypokalemia Brief History of Present Illness: 51yo F, PMH NIDDM2, HTN, HLD, GERD Presented to ED with 3 days of RUQ abdominal pain after eating, associated with nausea and decreased appetite. Found to have acute cholecystitis with cholelithiasis. Hospital Course: General Surgery was consulted and took patient for laparoscopic cholecystectomy on 10/12. Patient did well post-operatively. She was tolerated PO diet, pain controlled with PO medication, ambulating, voiding, and passing flatus. She was deemed stable for discharge home per General surgery. Follow up with Dr. Ochoa in ~1 week. Vital Signs/Physical Exam: Temp Pulse Resp BP Pulse Ox 97.4 F 61 14 95/48 L 98 10/13/21 12:00 10/13/21 12:00 10/13/21 12:00 10/13/21 12:00 10/13/21 12:00 General: Alert, In no apparent distress, Oriented x3 HEENT: Sclerae nonicteric Neck: Supple, No LAD Respiratory: Clear to auscultation bilaterally, Normal air movement Cardiovascular: No edema, Regular rate/rhythm Gastrointestinal: Soft and benign, Non-distended, Tenderness (mild RUQ tenderness) Integumentary: Other (surgical dressings c/d/i) Neurological: Normal speech, Normal affect Laboratory Data at Discharge: WBC 11.8 K/uL (4.3-10.9) H 10/13/21 04:23 Hgb 11.0 g/dL (12.0-15.0) L 10/13/21 04:23 Hct 33.6 % (36.0-45.0) L 10/13/21 04:23 Plt Count 256 K/uL (152-406) 10/13/21 04:23 Sodium 137 mmol/L (136-145) 10/13/21 04:23 Potassium 3.6 mmol/L (3.5-5.1) 10/13/21 04:23 BUN 13 mg/dL (7-18) 10/13/21 04:23 Creatinine 0.81 mg/dL (0.55-1.3) 10/13/21 04:23 Glucose 118 mg/dL (74-106) H 10/13/21 04:23 Total Bilirubin 0.3 mg/dL (0.2-1.0) 10/13/21 04:23 AST 34 U/L (15-37) 10/13/21 04:23 ALT 47 U/L (12-78) 10/13/21 04:23 Alkaline Phosphatase 74 U/L (45-117) 10/13/21 04:23 Lipase 82 U/L (73-393) 10/12/21 00:08 Followup: Bradley Ochoa MD [ACTIVE - CAN ADMIT] - (call for an apointment ) KELL CASTORENA [Primary Care Provider] - 1-2 Weeks (Dr Clair Clemente. [address] [facility] [phone]. Call for an apointment) Time spent managing pt's care (in minutes): 45
== END 2021-10-13 14:10 | disposition home or self-care (01) ==
LOC: ER 22:44 → ERHOLD 10-12 02:06 → 3RD-ICU 10-12 16:41
PROVIDERS: ADMIT Hospitalist; ATTEND Hospitalist
PROC: BF00YZZ Plain Radiography of Bile Ducts using Other Contrast (ICD-10-PCS; 2021-10-12)
PROC: 0FT44ZZ Resection of Gallbladder, Percutaneous Endoscopic Approach (ICD-10-PCS; principal; 2021-10-12 13:45)
DX: K80.12 Calculus of gallbladder with acute and chronic cholecystitis without obstruction (principal); E11.9 Type 2 diabetes mellitus without complications; I10 Essential (primary) hypertension; E78.5 Hyperlipidemia, unspecified; E87.6 Hypokalemia; K21.9 Gastro-esophageal reflux disease without esophagitis; Z20.822 Contact with and (suspected) exposure to COVID-19
CPT/HCPCS: 47563; 96365; 96367; 85025 ×2; 36415 ×2; 84132; 82947 ×5; 88304; 81003; 83690; 80053 ×2; 0240U; 74300; 76705; 96375; 99285; 96366; J2704; J2370; J3480 ×2; J2250; J3010; J1100; J2270; J1170; J2710; G0378 ×4; J7050; J7030 ×2; J2405 ×2; J0500